=== PATIENT | male | born 1990 | race Caucasian/White ===

== ENCOUNTER 2017-07-28 20:35 | Emergency (ER) | payer OTHER ==
[~2017-07-28 20:35] MED LIST: CYCL-36 PO; IBUP-232 PO
== END 2017-07-28 21:30 | disposition left against medical advice (07) ==
LOC: NED 20:35
DX: M79.646 Pain in unspecified finger(s) (principal); Z53.21 Procedure and treatment not carried out due to patient leaving prior to being seen by health care provider
CPT/HCPCS: 99281